=== PATIENT | male | born 1950 | race Two or more races ===

== ENCOUNTER 2019-02-15 09:54 | Day surgery (SDC) | payer MEDICARE, OTHER ==
[2019-02-15] VITALS (8 sets, daily range): BP systolic 93–135; BP diastolic 42–76
[~2019-02-15] VITALS: Ht 162.6 cm; Wt 70.3 kg
[2019-02-15] MEDS ORDERED: fentaNYL 100 mcg/2 mL IV ONE ×2 (09:55→10:30)
[2019-02-15] MEDS ORDERED: ATORVASTATIN CA20 MG ORAL (10:23)
[2019-02-15] MEDS ORDERED: ASPIR 8181 MG ORAL (10:23)
[2019-02-15] MEDS ORDERED: PLAVIX75 MG ORAL (10:23)
[2019-02-15] MEDS ORDERED: TRIFLUOPERAZINE1 MG PO (10:23)
[2019-02-15] MEDS ORDERED: Propofol 200mg/20ml IV ONE (10:30)
[2019-02-15] MEDS ORDERED: LR 1000ml ONE (10:30)
--- NOTE | 2019-02-15 10:41 | Short Stay Surgery H&P ---
History of Present Illness History of Present Illness Chief Complaint see typed H&P HPI Girma Leida Perkins is a 68 year old male who was admitted on for Elevated Cea Patient History Allergies: Coded Allergies: No Known Allergies (Unverified , 02/15/19) Medication History Scheduled Aspirin* (Aspir 81*), 81 MG ORAL DAILY, (Reported) Atorvastatin Calcium* (Atorvastatin Calcium*), 20 MG ORAL BEDTIME, (Reported) Clopidogrel Bisulfate* (Plavix*), 75 MG ORAL DAILY, (Reported) Trifluoperazine Hcl (Trifluoperazine Hcl), 1 MG PO DAILY, (Reported) Physical Exam Vital Signs Last Vital Signs Date Time Temp Pulse Resp B/P (MAP) Pulse Ox O2 Delivery O2 Flow Rate FiO2 02/15/19 10:19 Room Air 02/15/19 10:14 97.6 85 18 135/66 98 Plan Attestation Are the patient's medical conditions optimized for surgery? Lexy Guardado MD Feb 15, 2019 10:41
--- NOTE | 2019-02-15 10:41 | Pre-Procedure Note/Attestation ---
Pre-Procedure Note/Attestation Complete Prior to Procedure Planned Procedure: not applicable Procedure Narrative: egd/colon Indications for Procedure Pre-Operative Diagnosis: elevated CEA Attestation I attest that I discussed the nature of the procedure; its benefits; risks and complications; and alternatives (and the risks and benefits of such alternatives ), prior to the procedure, with the patient (or the patient's legal sales representative aircraft). I attest that, if there was a reasonable possibility of needing a blood transfusion, the patient (or the patient's legal sales representative aircraft) was given the [facility] standardized written summary, pursuant to the [place] Blood Safety Act ([place] Health and Safety Code # 1645, as amended). I attest that I re-evaluated the patient just prior to the surgery and that there has been no change in the patient's H&P, except as documented below: Lexy Guardado MD Feb 15, 2019 10:41
[2019-02-15] MEDS ORDERED: LR 1000ml 1,000 ML IVLG SCH (11:06)
--- NOTE | 2019-02-15 11:06 | Anethesia Preoperative Eval ---
Anesthesia Pre-op PMH/ROS General Date of Evaluation: Feb 15, 2019 Time of Evaluation: 10:28 Anesthesiologist: Bernardino ASA Score: ASA 3 Mallampati Score Class I : Soft palate, uvula, fauces, pillars visible Class II: Soft palate, uvula, fauces visible Class III: Soft palate, base of uvula visible Class IV: Only hard plate visible Mallampati Classification: Class III Surgeon: Myles Diagnosis: Abdominal pain Surgical Procedure: EGD Colonoscopy Anesthesia History: none Social History: smoking - h/o Allergies: Coded Allergies: No Known Allergies (Unverified , 02/15/19) Medications: see eMAR Patient NPO?: Yes Past Medical History Cardiovascular: Reports: HTN, CAD - s/p CABG Pulmonary: Denies: asthma, COPD, [place], other Gastrointestinal/Genitourinary: Reports: GERD, other - Tong CA s/p Sx; Denies: CRI, ESRD Neurologic/Psychiatric: Reports: depression/anxiety; Denies: dementia, CVA, TIA, other Endocrine: Reports: hypothyroidism; Denies: DM, steroids, other HEENT: Reports: cataract (L), cataract (R); Denies: glaucoma, [place] (L), [place] (R), other Hematology/Immune: Reports: anemia - mild; Denies: DVT, bleeding disorder, other Musculoskeletal/Integumentary: Reports: DJD; Denies: OA, RA, DDD, edema, other PMH Narrative: as above PSxH Narrative: see H&P Anesthesia Pre-op Phys. Exam Physician Exam Last Vital Signs Date Time Temp Pulse Resp B/P (MAP) Pulse Ox O2 Delivery O2 Flow Rate FiO2 02/15/19 10:19 Room Air 02/15/19 10:14 97.6 85 18 135/66 98 Constitutional: NAD Neurologic: CN 2-12 intact Cardiovascular: RRR, no M/R/G Respiratory: CTA Gastrointestinal: S/NT/ND Airway Exam Mallampati Score: Class III MO: limited Neck: stiff ROM: limited Teeth: missing Dentures: no upper, no lower Anesthesia Pre-op A/P Studies Pre-op Studies: EKG - SR Risk Assessment & Plan Assessment: ASA 3 Plan: MAC Status Change Before Surgery: Guevara Chamberlain MD Feb 15, 2019 11:06
[2019-02-15] MEDS ORDERED: fentaNYL 100 mcg/2 mL IV PRN (11:15)
--- NOTE | 2019-02-15 11:20 | Immediate Post-Op Evaluation ---
Immediate Post-Op Evalulation Immediate Post-Op Evalulation Procedure: EGD Colonoscopy Date of Evaluation: Feb 15, 2019 Time of Evaluation: 11:19 IV Fluids: 600 Blood Products: none Estimated Blood Loss: min Urinary Output: none Blood Pressure Systolic: 104 Blood Pressure Diastolic: 56 Pulse Rate: 72 Respiratory Rate: 20 O2 Sat by Pulse Oximetry: 98 Temperature (Fahrenheit): 97.8 Pain Score (1-10): 1 Nausea: No Vomiting: No Complications none Patient Status: awake, patent, none Hydration Status: adequate Guevara Lebron MD Feb 15, 2019 11:20
--- NOTE | 2019-02-15 12:49 | 48 Hour Post Anesthesia Eval ---
Post Anesthesia Evaluation Procedure: EGD Colonoscopy Date of Evaluation: Feb 15, 2019 Time of Evaluation: 12:47 Blood Pressure Systolic: 128 0: 76 Pulse Rate: 72 Respiratory Rate: 20 Temperature (Fahrenheit): 97.6 O2 Sat by Pulse Oximetry: 98 Airway: patent Nausea: No Vomiting: No Pain Intensity: 1 Hydration Status: adequate Cardiopulmonary Status: stable Mental Status/LOC: patient returned to baseline Follow-up Care/Observations: n/a Post-Anesthesia Complications: none Follow-up care needed: ready to discharge Guevara Lebron MD Feb 15, 2019 12:49
--- NOTE | 2019-02-16 18:00 | Operative Note - Dictated ---
DATE OF OPERATION: 02/15/2019 PROCEDURE: Upper gastrointestinal endoscopy with biopsy as well as colonoscopy. SURGEON: Lexy Guardado M.D. ANESTHESIA: Please see the separate anesthesiologist notes for details. PRE-ENDOSCOPIC DIAGNOSES: 1. Elevated CEA level. 2. Need for screening colonoscopy. POST-ENDOSCOPIC DIAGNOSES: 1. A 2 cm hiatal hernia. 2. Mild gastritis status post biopsy. 3. Incidental duodenal diverticulum in the second portion of duodenum. 4. Normal terminal ileum to 10 cm. 5. Normal colonoscopy without any polyps. 6. No pathology identified to explain the patient's elevated CEA. DESCRIPTION OF PROCEDURE: The procedure, its risks, indications, alternatives, and possible complications were explained to the patient and informed consent was obtained. The diagnostic upper endoscope was introduced through oropharynx and advanced to the duodenum. The endoscope was then gradually withdrawn and the mucosa was examined carefully. The rectal exam was done, which was normal and the colonoscope was introduced into the rectum and advanced to the terminal ileum for about 10 cm. The colonoscope was then gradually withdrawn and the mucosa examined carefully. Examination of the upper gastrointestinal mucosa as well as the colonic mucosa showed findings, which are listed above. There were no growth or abnormalities to explain the elevated CEA. The patient was sent to Recovery in good condition. COMPLICATIONS: None. RECOMMENDATIONS: 1. Follow up biopsy results. 2. Consider treating Helicobacter pylori if positive. 3. Follow up with the oncologist with respect to CEA level. Lexy Guardado M.D. DR: TIMOTHY JOB#: [id number] CC: Georgia Odom M.D.; Fax#: [phone]
--- NOTE | 2019-02-19 10:03 | Endoscopy Procedure Note ---
Endoscopy Procedure Note General Indication for Procedure: elevated CEA, Need for screening colon Procedures Performed: EGD, colonoscopy Operative Findings/Diagnosis: see typed dictation Specimen: yes Pt Tolerated Procedure Well: Yes Estimated Blood Loss: none Anesthesia Anesthesiologist: see report Anesthesia: MAC Medications Medication Given: see anesthesia record Inserted Devices Implant(s) used?: No GI Core Measures 50 yrs or older w/o bx or poly: Yes 10yrs. F/U not recommended: Yes If not recommended, why?: 10 yrs. F/U needed: Yes 18 years or older w/prev. colo: No <3yrs. since last colonoscopy: No Med reason:<3 yrs.: System Reason:<3 yrs.: Last colonoscopy >= to 3yrs: Yes Lexy Guardado MD Feb 19, 2019 10:03
--- NOTE | 2019-02-19 10:04 | Brief Operative Note ---
Immediate Post Operative Note Operative Note Chief Complaint: Elevated CEA, screening Pre-op Diagnosis: elevated CEA Procedure: esophagogastroduodenoscopy colon, Post-op Diagnosis: 1. A 2 cm hiatal hernia. 2. Mild gastritis status post biopsy. 3. Incidental duodenal diverticulum in the second portion of duodenum. 4. Normal terminal ileum to 10 cm. 5. Normal colonoscopy without any polyps. 6. No pathology identified to explain the patient's elevated CEA. Surgeon: naty Anesthesiologist: see report Anesthesia: MAC Specimen: yes Complications: none Condition: stable Fluids: recorded Estimated Blood Loss: none Drains: none Implant(s) used?: No Lexy Guardado MD Feb 19, 2019 10:04
== END 2019-02-15 14:00 | disposition home or self-care (01) ==
LOC: GAS 09:54
DX: Z12.11 Encounter for screening for malignant neoplasm of colon (principal); R97.0 Elevated carcinoembryonic antigen [CEA]; K29.50 Unspecified chronic gastritis without bleeding; K44.9 Diaphragmatic hernia without obstruction or gangrene; K57.90 Diverticulosis of intestine, part unspecified, without perforation or abscess without bleeding; Z79.82 Long term (current) use of aspirin; I11.9 Hypertensive heart disease without heart failure; I25.10 Atherosclerotic heart disease of native coronary artery without angina pectoris; Z95.1 Presence of aortocoronary bypass graft; K21.9 Gastro-esophageal reflux disease without esophagitis; Z85.89 Personal history of malignant neoplasm of other organs and systems; M19.90 Unspecified osteoarthritis, unspecified site; F32.9 Major depressive disorder, single episode, unspecified; F41.9 Anxiety disorder, unspecified; D64.9 Anemia, unspecified
CPT/HCPCS: 43239; G0121; J2704; J3010; 94003; 94150